=== PATIENT | female | born 1990 | race Caucasian/White ===

== ENCOUNTER 2019-10-07 13:25 | Emergency (ER) | payer BC ==
[2019-10-07] MEDS ORDERED: Sodium Chloride 0.9% 10 ML Syringe FLUSH PRN (13:45)
[2019-10-07] MEDS ORDERED: Morphine 4 MG/ML Syringe IVPUSH ONE ×2 (13:46→17:04)
[2019-10-07] MEDS ORDERED: Ondansetron 4 MG/2 ML SDV IVPUSH ONE (13:46)
--- NOTE | 2019-10-07 13:49 | EDM.PDOC ---
ED HPI GENERAL MEDICAL PROBLEM - General Chief Complaint: Abdominal Pain Stated Complaint: LEFT SIDE PAIN (POST SURGERY 09/24) Time Seen by Provider: 10/07/19 13:46 Source of Information: Reports: Patient History Limitations: Reports: No Limitations - History of Present Illness INITIAL COMMENTS - FREE TEXT/NARRATIVE: The patient is an unfortunate 29-year-old female who presents to the emergency department today with complaints of abdominal pain. Patient reports that she is status post a gastric sleevectomy on 09/25/2019 at which time she was feeling okay she does have a postop wound infection she has a mild dehiscence of her umbilical incision with no surrounding erythema for which she is currently taking Augmentin. The patient reports that 3 days ago she went to lift her nephew and felt a pain on the left side of her abdomen she reports that this pain is progressively worsened so she came to the emergency department today for evaluation positive nausea intermittent episodes of vomiting no diarrhea reports her last BM was yesterday no fever no chills no hematemesis no hematochezia no melena Abdomen Pain Score (Numeric/FACES): 9 - Related Data Allergies Allergy/AdvReac Type Severity Reaction Status Date / Time No Known Allergies Allergy Verified 10/07/19 13:44 Home Meds: Home Meds ISOtretinoin [Absorica] 40 mg PO DAILY 10/07/19 [History] LORazepam [Lorazepam] 0.5 mg PO DAILY PRN 10/07/19 [History] [place] Carbonate 900 mg PO BEDTIME 10/07/19 [History] Lurasidone HCl [Latuda] 60 mg PO BEDTIME 10/07/19 [History] Methimazole [Tapazole] 10 mg PO DAILY 10/07/19 [History] OLANZapine [ZyPREXA] 10 mg PO DAILY PRN 10/07/19 [History] OXcarbazepine [Oxcarbazepine] 300 mg PO BEDTIME 10/07/19 [History] Pantoprazole Sodium [Protonix] 40 mg PO DAILY 10/07/19 [History] atenoloL [Atenolol] 25 mg PO DAILY 10/07/19 [History] lamoTRIgine [Lamotrigine] 100 mg PO BEDTIME 10/07/19 [History] ED ROS GENERAL - Review of Systems Review Of Systems: See Below Constitutional: Denies: Fever, Chills GI/Abdominal: Reports: Abdominal Pain, Nausea, Vomiting. Denies: Diarrhea ED EXAM, GI/ABD - Physical Exam Exam: See Below Exam Limited By: No Limitations General Appearance: Alert, WD/WN, Moderate Distress, Obese Neck: Normal Inspection, Supple, Non-Tender, Full Range of Motion Respiratory/Chest: No Respiratory Distress, Lungs Clear, Normal Breath Sounds, No Accessory Muscle Use, Chest Non-Tender Cardiovascular: Normal Peripheral Pulses, Regular Rate, Rhythm, No Edema, No Gallop, No JVD, No Murmur, No Rub GI/Abdominal Exam: Normal Bowel Sounds, Soft, Tender (Left upper and lower quadrants) Back Exam: Normal Inspection, Full Range of Motion, NT Extremities: Normal Inspection, Normal Range of Motion, Non-Tender, Normal Capillary Refill, No Pedal Edema Neurological: Alert, Oriented Psychiatric: Normal Affect Skin Exam: Warm, Dry Course - Vital Signs Last Recorded V/S: Last Vital Signs Temp 98.1 F 10/07/19 13:37 Pulse 80 10/07/19 13:37 Resp 18 10/07/19 13:37 BP 127/79 10/07/19 13:37 Pulse Ox 99 10/07/19 13:37 - Orders/Labs/Meds Orders: Active Orders 24 hr Category Date Time Status CULTURE BLOOD [BC] Stat Lab 10/07/19 16:44 Ordered CULTURE BLOOD [BC] Stat Lab 10/07/19 16:44 Ordered LACTIC ACID [CHEM] Stat Lab 10/07/19 16:44 Ordered LITHIUM [REF] Stat Lab 10/07/19 14:00 Received Piperacillin/Tazobactam [Piperacil-Tazobact] 4.5 gm Med 10/07/19 17:04 Active Sodium Chloride 0.9% [Normal Saline] 100 ml IV ONETIME Sodium Chloride 0.9% [Saline Flush] Med 10/07/19 13:45 Active 10 ml FLUSH ASDIRECTED PRN Blood Culture x2 Reflex Set [OM.PC] Stat Oth 10/07/19 16:44 Ordered Saline Lock Insert [OM.PC] Stat Oth 10/07/19 13:45 Ordered Medication Orders Piperacillin Sod/Tazobactam (Sod 4.5 gm/ Sodium Chloride) 100 mls @ 25 mls/hr IV ONETIME ONE Stop: 10/07/19 21:03 Sodium Chloride (Saline Flush) 10 ml FLUSH ASDIRECTED PRN PRN Reason: Keep Vein Open Last Admin: 10/07/19 14:50 Dose: 10 ml Documented by: KEYON Labs: Laboratory Tests 10/07/19 10/07/19 10/07/19 Range/Units 14:00 14:00 14:00 WBC 20.69 H (3.98-10.04) K/mm3 RBC 4.67 (3.98-5.22) M/mm3 Hgb 13.5 (11.2-15.7) gm/dl Hct 40.0 (34.1-44.9) % MCV 85.7 D (79.4-94.8) fl MCH 28.9 (25.6-32.2) pg MCHC 33.8 (32.2-35.5) g/dl RDW Std Deviation 38.7 (36.4-46.3) fL Plt Count 572 H D (182-369) K/mm3 MPV 9.3 L (9.4-12.3) fl Neut % (Auto) 83.2 H (34.0-71.1) % Lymph % (Auto) 8.4 L (19.3-51.7) % [place] % (Auto) 7.8 (4.7-12.5) % Eos % (Auto) 0 L (0.7-5.8) Baso % (Auto) 0.1 (0.1-1.2) % Neut # (Auto) 17.19 H (1.56-6.13) K/mm3 Lymph # (Auto) 1.74 (1.18-3.74) K/mm3 [place] # (Auto) 1.62 H (0.24-0.36) K/mm3 Eos # (Auto) 0.00 L (0.04-0.36) K/mm3 Baso # (Auto) 0.03 (0.01-0.08) K/mm3 Manual Slide Review Abnormal smear Sodium 135 L (136-145) mEq/L Potassium 3.4 L (3.5-5.1) mEq/L Chloride 98 (98-107) mEq/L Carbon Dioxide 23 (21-32) mEq/L Anion Gap 17.4 H (5-15) BUN 12 (7-18) mg/dL Creatinine 1.1 H (0.55-1.02) mg/dL Est Cr Clr Drug Dosing 77.49 mL/min Estimated GFR (MDRD) 60 (>60) mL/min BUN/Creatinine Ratio 10.9 L (14-18) Glucose 96 (74-106) mg/dL Calcium 10.2 H (8.5-10.1) mg/dL Total Bilirubin 0.5 (0.2-1.0) mg/dL AST 30 (15-37) U/L ALT 90 H (14-59) U/L Alkaline Phosphatase 106 (46-116) U/L Total Protein 8.2 (6.4-8.2) g/dl Albumin 3.4 (3.4-5.0) g/dl Globulin 4.8 gm/dL Albumin/Globulin Ratio 0.7 L (1-2) HCG, Qual Negative (NEGATIVE) Urine Color (Yellow) Urine Appearance (Clear) Urine pH (5.0-8.0) Ur Specific [place] (1.005-1.030) Urine Protein (Negative) Urine Glucose (UA) (Negative) Urine Ketones (Negative) Urine Occult Blood (Negative) Urine Nitrite (Negative) Urine Bilirubin (Negative) Urine Urobilinogen (0.2-1.0) Ur Leukocyte Esterase (Negative) Urine RBC (0-5) /hpf Urine WBC (0-5) /hpf Ur Squamous Epith Cells (0-5) /hpf Urine Bacteria (FEW) /hpf Urine Mucus (FEW) /hpf 07/05/ Range/Units 14:57 WBC (3.98-10.04) K/mm3 RBC (3.98-5.22) M/mm3 Hgb (11.2-15.7) gm/dl Hct (34.1-44.9) % MCV (79.4-94.8) fl MCH (25.6-32.2) pg MCHC (32.2-35.5) g/dl RDW Std Deviation (36.4-46.3) fL Plt Count (182-369) K/mm3 MPV (9.4-12.3) fl Neut % (Auto) (34.0-71.1) % Lymph % (Auto) (19.3-51.7) % [place] % (Auto) (4.7-12.5) % Eos % (Auto) (0.7-5.8) Baso % (Auto) (0.1-1.2) % Neut # (Auto) (1.56-6.13) K/mm3 Lymph # (Auto) (1.18-3.74) K/mm3 [place] # (Auto) (0.24-0.36) K/mm3 Eos # (Auto) (0.04-0.36) K/mm3 Baso # (Auto) (0.01-0.08) K/mm3 Manual Slide Review Sodium (136-145) mEq/L Potassium (3.5-5.1) mEq/L Chloride (98-107) mEq/L Carbon Dioxide (21-32) mEq/L Anion Gap (5-15) BUN (7-18) mg/dL Creatinine (0.55-1.02) mg/dL Est Cr Clr Drug Dosing mL/min Estimated GFR (MDRD) (>60) mL/min BUN/Creatinine Ratio (14-18) Glucose (74-106) mg/dL Calcium (8.5-10.1) mg/dL Total Bilirubin (0.2-1.0) mg/dL AST (15-37) U/L ALT (14-59) U/L Alkaline Phosphatase (46-116) U/L Total Protein (6.4-8.2) g/dl Albumin (3.4-5.0) g/dl Globulin gm/dL Albumin/Globulin Ratio (1-2) HCG, Qual (NEGATIVE) Urine Color Yellow (Yellow) Urine Appearance Clear (Clear) Urine pH 6.0 (5.0-8.0) Ur Specific [place] 1.020 (1.005-1.030) Urine Protein Trace H (Negative) Urine Glucose (UA) Negative (Negative) Urine Ketones 2+ H (Negative) Urine Occult Blood 1+ H (Negative) Urine Nitrite Negative (Negative) Urine Bilirubin 1+ H (Negative) Urine Urobilinogen 0.2 (0.2-1.0) Ur Leukocyte Esterase Negative (Negative) Urine RBC 0-5 (0-5) /hpf Urine WBC 0-5 (0-5) /hpf Ur Squamous Epith Cells 10-20 H (0-5) /hpf Urine Bacteria Rare (FEW) /hpf Urine Mucus Not seen (FEW) /hpf Meds: Medications Generic Name Dose Route Start Last Admin Trade Name Freq PRN Reason Stop Dose Admin Piperacillin Sod/Tazobactam 100 mls @ 25 mls/hr 10/07/19 17:04 Sod 4.5 gm/ Sodium Chloride IV 10/07/19 21:03 ONETIME ONE Sodium Chloride 10 ml 10/07/19 13:45 10/07/19 14:50 Saline Flush FLUSH 10 ml ASDIRECTED PRN Administration Keep Vein Open Discontinued Medications Generic Name Dose Route Start Last Admin Trade Name Freq PRN Reason Stop Dose Admin Diatrizoate Meglum/Diatrizoate Sod 45 ml 10/07/19 16:10 10/07/19 16:25 Gastrografin 37% PO 10/07/19 16:11 45 ml ONETIME ONE Administration Iopamidol 100 ml 10/07/19 16:10 10/07/19 16:25 Isovue-300 (61%) IVPUSH 10/07/19 16:11 100 ml ONETIME ONE Administration Iopamidol 50 ml 10/07/19 16:10 10/07/19 16:26 Isovue-300 (61%) IVPUSH 10/07/19 16:11 15 ml ONETIME ONE Administration Morphine Sulfate 4 mg 10/07/19 13:46 10/07/19 14:06 Morphine IVPUSH 10/07/19 13:47 4 mg ONETIME ONE Administration Morphine Sulfate 4 mg 10/07/19 17:04 Morphine IVPUSH 10/07/19 17:05 ONETIME ONE Ondansetron HCl 4 mg 10/07/19 13:46 10/07/19 14:04 Zofran IVPUSH 10/07/19 13:47 4 mg ONETIME ONE Administration Sodium Chloride 10 ml 10/07/19 16:10 10/07/19 16:26 Saline Flush FLUSH 10/07/19 16:11 10 ml ONETIME ONE Administration - Radiology Interpretation Free Text/Narrative:: CT abdomen and pelvis "impression: #1 2 fluid filled collections within the left abdomen suspicious for abscess. Since this fluid-filled collection lies close to the colon diverticular abscesses or a possible although other etiology for abscess is also within the differential. #2 mild atelectasis within both posterior lungs. Possible small left-sided pleural effusion. #3 no additional abnormality is seen." - Re-Assessments/Exams Free Text/Narrative Re-Assessment/Exam: 10/07/19 16:[address] Ellington at [facility] in [facility] who accepts patient in transfer Departure - Departure Time of Disposition: 17:06 Disposition: DC/Tfer to Hospice-Med Fac 51 Condition: Fair Clinical Impression: Abdominal abscess - Discharge Information Referrals: Yulia Beckwith, [employer] OPERATOR [Primary Care Provider] - Forms: ED Department Discharge Sepsis Event Note (ED) - Evaluation Sepsis Screening Result: No Definite Risk - Focused Exam Vital Signs: Vital Signs Temp Pulse Resp BP Pulse Ox 10/07/19 13:37 98.1 F 80 18 127/79 99 - My Orders Last 24 Hours: My Active Orders 10/07/19 13:45 Sodium Chloride 0.9% [Saline Flush] 10 ml FLUSH ASDIRECTED PRN Saline Lock Insert [OM.PC] Stat 10/07/19 14:00 LITHIUM [REF] Stat 10/07/19 16:44 CULTURE BLOOD [BC] Stat CULTURE BLOOD [BC] Stat LACTIC ACID [CHEM] Stat Blood Culture x2 Reflex Set [OM.PC] Stat 10/07/19 17:04 Piperacillin/Tazobactam [Piperacil-Tazobact] 4.5 gm Sodium Chloride 0.9% [Normal Saline] 100 ml IV ONETIME - Assessment/Plan Last 24 Hours: My Active Orders 10/07/19 13:45 Sodium Chloride 0.9% [Saline Flush] 10 ml FLUSH ASDIRECTED PRN Saline Lock Insert [OM.PC] Stat 10/07/19 14:00 LITHIUM [REF] Stat 10/07/19 16:44 CULTURE BLOOD [BC] Stat CULTURE BLOOD [BC] Stat LACTIC ACID [CHEM] Stat Blood Culture x2 Reflex Set [OM.PC] Stat 10/07/19 17:04 Piperacillin/Tazobactam [Piperacil-Tazobact] 4.5 gm Sodium Chloride 0.9% [Normal Saline] 100 ml IV ONETIME
[2019-10-07] MEDS ORDERED: Diatrizoate Meglumine/Diatrizoate Sodium 37% 120 ML Bottle PO ONE (16:10)
[2019-10-07] MEDS ORDERED: Sodium Chloride 0.9% 10 ML Syringe FLUSH ONE (16:10)
[2019-10-07] MEDS ORDERED: Iopamidol 612 MG/ML 100 ML Bottle IVPUSH ONE (16:10)
[2019-10-07] MEDS ORDERED: Iopamidol 612 MG/ML 50 ML SDV IVPUSH ONE (16:10)
--- NOTE | 2019-10-07 16:49 | CT ---
CT abdomen and pelvis Technique: Multiple axial sections were obtained from above the dome of the diaphragm inferiorly through the pubic symphysis. Intravenous and oral contrast was utilized. Findings: 2 low density abnormality seen within the left abdomen. Larger measures 8.0 cm and smaller adjacent abnormality measures 3.5 cm. Findings are suspicious for abscess. These lie close to the colon and difficult to exclude a diverticular abscess. Other abscess is also a possibility. Mild atelectasis is noted posteriorly within both lung bases. Probable small left-sided pleural effusion. Low density next to the ligamentum teres fissure is seen which is felt to be within normal. No additional abnormality is seen within the liver. Spleen appears within normal limits. Pancreas appears within normal limits. Aorta shows no aneurysm. Gallbladder contains no calcified gallstones. No retroperitoneal adenopathy or mesenteric abnormalities are seen. Appendix is seen which is felt to be within normal limits. No free fluid is seen. Delayed images shows contrast within the distal ureters and bladder. IUD is present within the uterus. Impression: 1. 2 fluid-filled collections within the left abdomen suspicious for abscess. Since this fluid-filled collections lies close to the colon diverticular abscesses are a possible although other etiology for abscess also within the differential. 2. Mild atelectasis within both posterior lungs. Possible small left-sided pleural effusion. 3. No additional abnormality is seen. Diagnostic code #3 This report was dictated in MDT
[2019-10-07] MEDS ORDERED: Piperacillin/Tazobactam 4.5 GM in Sodium Chloride 0.9% 100 ML IV ONE (17:04)
== END 2019-10-07 17:59 | disposition hospice, inpatient (51) ==
LOC: JD.ED 13:25
DX: L02.211 Cutaneous abscess of abdominal wall (principal); E66.9 Obesity, unspecified; Z68.32 Body mass index [BMI] 32.0-32.9, adult; Z79.899 Other long term (current) drug therapy
CPT/HCPCS: 36415; 74177; 80053; 80178; 81001; 83605; 84703; 85025; 87040; 96365; 96375; 96376; 99285; J2270; J2405; J2543; J7050; Q9963; Q9967

== ENCOUNTER 2020-08-16 00:26 | Emergency (ER) | payer BC, OTHER ==
[2020-08-16] MEDS ORDERED: Sodium Chloride 0.9% 10 ML Syringe FLUSH PRN (01:07)
[2020-08-16] MEDS ORDERED: Ondansetron 4 MG/2 ML SDV IVPUSH ONE (01:07)
[2020-08-16] MEDS ORDERED: Sodium Chloride 0.9% 1,000 ML IV SCH (01:15)
--- NOTE | 2020-08-16 02:03 | EDM.PDOC ---
ED HPI GENERAL MEDICAL PROBLEM - General Chief Complaint: Abdominal Pain Stated Complaint: LOWER RIGHT SIDE AND BACK PAIN Time Seen by Provider: 08/16/20 00:53 Source of Information: Reports: Patient, RN Notes Reviewed - History of Present Illness INITIAL COMMENTS - FREE TEXT/NARRATIVE: 30 yr old female comes in with R lower abd pain that first started about 10 hrs ago, has gotten worse over the past couple of hours, now somewhat better after arrival to ED. Has vomited twice. mild diarrhea but that is not unusual for her. No fever or chills. No cough or difficulty breathing. Right Lower Abdomen Pain Score (Numeric/FACES): 7 - Related Data Allergies Allergy/AdvReac Type Severity Reaction Status Date / Time No Known Allergies Allergy Verified 08/16/20 00:35 Home Meds: Home Meds ISOtretinoin [Absorica] 40 mg PO DAILY 10/07/19 [History] LORazepam [Lorazepam] 0.5 mg PO DAILY PRN 10/07/19 [History] [place] Carbonate 900 mg PO BEDTIME 10/07/19 [History] Lurasidone HCl [Latuda] 60 mg PO BEDTIME 10/07/19 [History] Methimazole [Tapazole] 10 mg PO DAILY 10/07/19 [History] OLANZapine [ZyPREXA] 10 mg PO DAILY PRN 10/07/19 [History] OXcarbazepine [Oxcarbazepine] 300 mg PO BEDTIME 10/07/19 [History] Pantoprazole Sodium [Protonix] 40 mg PO DAILY 10/07/19 [History] atenoloL [Atenolol] 25 mg PO DAILY 10/07/19 [History] lamoTRIgine [Lamotrigine] 100 mg PO BEDTIME 10/07/19 [History] Past Medical History Gastrointestinal History: Reports: Helicobacter Pylori Psychiatric History: Reports: Anxiety, Bipolar Endocrine/Metabolic History: Reports: Hyperthyroidism - Past Surgical History HEENT Surgical History: Reports: Oral Surgery GI Surgical History: Reports: Bariatric Procedure Other GI Surgeries/Procedures: Gastric sleeve, abdominal abscess after surgery Social & Family History - Family History Family Medical History: No Pertinent Family History - Caffeine Use Caffeine Use: Reports: None - Recreational Drug Use Recreational Drug Use: No ED ROS GENERAL - Review of Systems Review Of Systems: See Below Constitutional: Denies: Fever, Chills HEENT: Reports: No Symptoms Respiratory: Denies: Shortness of Breath Cardiovascular: Denies: Chest Pain GI/Abdominal: Reports: Abdominal Pain, Diarrhea, Nausea, Vomiting. Denies: Hematochezia, Melena Musculoskeletal: Reports: Back Pain (gone) Skin: Reports: No Symptoms Neurological: Reports: No Symptoms ED EXAM, GI/ABD - Physical Exam Exam: See Below General Appearance: Alert, No Apparent Distress Head: Atraumatic Neck: Supple Respiratory/Chest: No Respiratory Distress, Lungs Clear, Normal Breath Sounds Cardiovascular: Regular Rate, Rhythm GI/Abdominal Exam: Soft, Tender (mild tenderness RLQ, very mild tenderness RUQ, L abd soft and nontender). No: Guarding, Rebound Back Exam: No: CVA Tenderness (L), CVA Tenderness (R) Extremities: Normal Inspection Neurological: Alert, No Motor/Sensory Deficits Skin Exam: Warm, Dry, Normal Color, No Rash Course - Vital Signs Last Recorded V/S: Last Vital Signs Temp 97.4 F 08/16/20 00:37 Pulse 81 08/16/20 00:37 Resp 17 08/16/20 00:37 BP 130/93 H 08/16/20 00:37 Pulse Ox 100 08/16/20 00:37 - Orders/Labs/Meds Orders: Active Orders 24 hr Category Date Time Status Peripheral IV Care [RC] . DIRECTED Care 08/16/20 01:07 Active Sodium Chloride 0.9% [Normal Saline] 1,000 ml Med 08/16/20 01:15 Active IV ONETIME Sodium Chloride 0.9% [Saline Flush] Med 08/16/20 01:07 Active 10 ml FLUSH ASDIRECTED PRN Peripheral IV Insertion Adult [OM.PC] Stat Oth 08/16/20 01:07 Ordered Medication Orders Sodium Chloride (Normal Saline) 1,000 mls @ 999 mls/hr IV ONETIME [facility] Last Admin: 08/16/20 01:27 Dose: 999 mls/hr Documented by: ANA Sodium Chloride (Sodium Chloride 0.9% 10 Ml Syringe) 10 ml FLUSH ASDIRECTED PRN PRN Reason: Keep Vein Open Last Admin: 08/16/20 01:27 Dose: 10 ml Documented by: ANA Labs: Laboratory Tests 08/16/20 08/16/20 08/16/20 Range/Units 01:22 01:22 01:22 WBC 6.44 (3.98-10.04) K/mm3 RBC 4.70 (3.98-5.22) M/mm3 Hgb 13.7 (11.2-15.7) gm/dl Hct 41.9 (34.1-44.9) % MCV 89.1 D (79.4-94.8) fl MCH 29.1 (25.6-32.2) pg MCHC 32.7 (32.2-35.5) g/dl RDW Std Deviation 44.5 (36.4-46.3) fL Plt Count 336 D (182-369) K/mm3 MPV 9.0 L (9.4-12.3) fl Neut % (Auto) 56.6 (34.0-71.1) % Lymph % (Auto) 35.2 (19.3-51.7) % [place] % (Auto) 7.8 (4.7-12.5) % Eos % (Auto) 0 L (0.7-5.8) Baso % (Auto) 0.2 (0.1-1.2) % Neut # (Auto) 3.65 (1.56-6.13) K/mm3 Lymph # (Auto) 2.27 (1.18-3.74) K/mm3 [place] # (Auto) 0.50 H (0.24-0.36) K/mm3 Eos # (Auto) 0.00 L (0.04-0.36) K/mm3 Baso # (Auto) 0.01 (0.01-0.08) K/mm3 Sodium 141 (136-145) mEq/L Potassium 3.5 (3.5-5.1) mEq/L Chloride 105 (98-107) mEq/L Carbon Dioxide 28 (21-32) mEq/L Anion Gap 11.5 (5-15) BUN 11 (7-18) mg/dL Creatinine 1.2 H (0.55-1.02) mg/dL Est Cr Clr Drug Dosing 70.41 mL/min Estimated GFR (MDRD) 53 (>60) mL/min BUN/Creatinine Ratio 9.2 L (14-18) Glucose 88 (70-99) mg/dL Calcium 9.5 (8.5-10.1) mg/dL Total Bilirubin 0.7 (0.2-1.0) mg/dL AST 25 (15-37) U/L ALT 26 (14-59) U/L Alkaline Phosphatase 64 (46-116) U/L C-Reactive Protein 0.2 (<1.0) mg/dL Total Protein 7.4 (6.4-8.2) g/dl Albumin 4.3 (3.4-5.0) g/dl Globulin 3.1 gm/dL Albumin/Globulin Ratio 1.4 (1-2) Meds: Medications Generic Name Dose Route Start Last Admin Trade Name Freq PRN Reason Stop Dose Admin Sodium Chloride 1,000 mls @ 999 mls/hr 08/16/20 01:15 08/16/20 01:27 Normal Saline IV 999 mls/hr ONETIME [place] Administration Sodium Chloride 10 ml 08/16/20 01:07 08/16/20 01:27 Sodium Chloride 0.9% 10 Ml Syringe FLUSH 10 ml ASDIRECTED PRN Administration Keep Vein Open Discontinued Medications Generic Name Dose Route Start Last Admin Trade Name Freq PRN Reason Stop Dose Admin Ondansetron HCl 4 mg 08/16/20 01:07 08/16/20 01:27 Ondansetron 4 Mg/2 Ml Sdv IVPUSH 08/16/20 01:08 4 mg ONETIME ONE Administration - Re-Assessments/Exams Free Text/Narrative Re-Assessment/Exam: 08/16/20 02:18 WBC and CRP very normal. She does not show evidence for acute abd. at this time. Discharge instr. as documented. Departure - Departure Time of Disposition: 02:08 Disposition: Home, Self-Care 01 Condition: Fair Clinical Impression: Abdominal pain Qualifiers: Abdominal location: right lower quadrant Qualified Code(s): R10.31 - Right lowe r quadrant pain Vomiting Qualifiers: Vomiting type: unspecified Vomiting Intractability: non-intractable Nausea presence: with nausea Qualified Code(s): R11.2 - Nausea with vomiting, unspecified - Discharge Information Instructions: Abdominal Pain, Adult, Vomiting, Adult Referrals: PCP,None [Primary Care Provider] - Forms: ED Department Discharge Additional Instructions: Clear liquids until noon today. Than very careful bland diet as tolerated. Follow up clinic as needed. Return to ED as needed if symptoms worsening in any way. Sepsis Event Note (ED) - Evaluation Sepsis Screening Result: No Definite Risk - Focused Exam Vital Signs: Vital Signs Temp Pulse Resp BP Pulse Ox 08/16/20 00:37 97.4 F 81 17 130/93 H 100 - My Orders Last 24 Hours: My Active Orders 08/16/20 01:07 Peripheral IV Care [RC] . DIRECTED Sodium Chloride 0.9% [Saline Flush] 10 ml FLUSH ASDIRECTED PRN Peripheral IV Insertion Adult [OM.PC] Stat 08/16/20 01:15 Sodium Chloride 0.9% [Normal Saline] 1,000 ml IV ONETIME - Assessment/Plan Last 24 Hours: My Active Orders 08/16/20 01:07 Peripheral IV Care [RC] . DIRECTED Sodium Chloride 0.9% [Saline Flush] 10 ml FLUSH ASDIRECTED PRN Peripheral IV Insertion Adult [OM.PC] Stat 08/16/20 01:15 Sodium Chloride 0.9% [Normal Saline] 1,000 ml IV ONETIME
== END 2020-08-16 02:22 | disposition home or self-care (01) ==
LOC: JD.ED 00:26
DX: R10.31 Right lower quadrant pain (principal); R11.2 Nausea with vomiting, unspecified
CPT/HCPCS: 36415; 80053; 85025; 86140; 96374; 99284; J2405; J7030